=== PATIENT | male | born 1950 | race Two or more races ===

== ENCOUNTER 2016-05-29 06:38 | Inpatient (IN) | payer MEDICARE, OTHER ==
[~2016-05-29] VITALS: Ht 180.3 cm; Wt 79.4 kg
[2016-05-29 04:00] VITALS: BP 141/74
[2016-05-29] MEDS ORDERED: IV NS 0.9% 1,000 ML ONE (07:05)
[2016-05-29] MEDS ORDERED: IV SET PRIMARY PUMP SET 1 EA INFUS.SET MC ONE ×2 (07:05→13:31)
[2016-05-29] MEDS ORDERED: ONDANSETRON HCL/PF 4 MG/2 ML VIAL ONE (07:05)
[2016-05-29] MEDS: METOCLOPRAMIDE HCL 10 MG/2 ML VIAL IV ONE ×2 (07:12→08:30)
[2016-05-29 07:24] LABS: BASOPHILS % (AUTO) 0.5 % (0.0-2.0); DIFF TOTAL % 100 %; EOSINOPHILS # (AUTO) 0.1 /CMM (0.0-0.7); EOSINOPHILS % (AUTO) 1.5 % (0.0-6.0); HEMATOCRIT 46 % (39-51); HEMOGLOBIN 15.6 g/dL (13.5-17.5); LYMPHOCYTES # (AUTO) 1.7 /CMM (0.8-4.8); LYMPHOCYTES % (AUTO) 18.3 % (20.0-44.0); MEAN CORPUSCULAR HEMOGLOBIN 31 PG (26.0-33.0); MEAN CORPUSCULAR HGB CONC 34 g/dl (31.0-36.0); MEAN CORPUSCULAR VOLUME 90 fL (80-96); MONOCYTES # (AUTO) 0.9 /CMM (0.1-1.30); MONOCYTES % (AUTO) 9.6 % (2.0-12.0); NEUTROPHILS # (AUTO) 6.3 /CMM (1.8-8.9); NEUTROPHILS % (AUTO) 70.1 % (43.0-81.0); PLATELET COUNT (AUTO) 275 /CMM (150-450)
[2016-05-29 07:29] LABS: ANION GAP 16 (5-14); CALCIUM, SERUM 9.6 mg/dL (8.5-10.1); CARBON DIOXIDE 23 mmol/L (21-32); CHLORIDE 102 mmol/L (98-107); CREATININE 1.4 mg/dL (0.6-1.3); GFR 50 mL/min (>60); GLUCOSE 159 mg/dL (74-106); POTASSIUM 3.6 mmol/L (3.5-5.1); SODIUM SERUM 138 mmol/L (136-145); UREA NITROGEN, BLOOD 20 mg/dL (7-18)
[2016-05-29 07:30] LABS: INR 0.96 (0.87-1.13); PROTHROMBIN TIME 10.1 SECS (9.5-12.7)
[2016-05-29] MEDS ORDERED: IV NS 0.9% 1,000 ML BAG IV ONE (07:30)
[2016-05-29] MEDS ORDERED: ONDANSETRON HCL/PF 4 MG/2 ML VIAL IVP ONE (07:30)
[2016-05-29 07:39] LABS: TROPONIN I < 0.017 ng/mL (0.00-0.056)
[2016-05-29] MEDS ORDERED: METOCLOPRAMIDE HCL 10 MG/2 ML VIAL ONE (08:29)
[2016-05-29] MEDS ORDERED: LATA2.5D7 EACHEYE (10:43)
[2016-05-29] MEDS ORDERED: ASPIRIN 325 MG TABLET PO ONE (11:30)
[2016-05-29] MEDS ORDERED: ASPIRIN 325 MG TABLET ONE (11:50)
[2016-05-29] MEDS ORDERED: AMLODIPINE BESYLATE 2.5 MG TABLET PO SCH (12:27)
[2016-05-29 12:30] VITALS: BP 124/81
[2016-05-29] MEDS ORDERED: ACETAMINOPHEN 325 MG TABLET PO PRN (12:30)
[2016-05-29] MEDS ORDERED: ACETAMINOPHEN ES 500 MG TABLET PO PRN (12:30)
[2016-05-29] MEDS ORDERED: ZOLPIDEM TARTRATE 5 MG TABLET PO PRN ×2 (12:30)
[2016-05-29] MEDS ORDERED: ONDANSETRON HCL/PF 4 MG/2 ML VIAL IV PRN (13:00)
[2016-05-29] MEDS ORDERED: PANTOPRAZOLE 40 MG VIAL IV SCH (13:00)
[2016-05-29] MEDS: ENOXAPARIN SODIUM 40 MG/0.4 ML DISP.SYRIN SQ SCH (13:55)
[2016-05-29 14:46] VITALS: BP 124/81
[2016-05-29 16:00] VITALS: BP 150/78
[2016-05-29 20:00] VITALS: BP_SYST 149; BP_SYST 153; BP_DIAS 71; BP_DIAS 77
[2016-05-29 22:00] VITALS: BP 149/71
[2016-05-30] VITALS: BP 150/77
[2016-05-30 06:51] LABS: BASOPHILS % (AUTO) 0.5 % (0.0-2.0); DIFF TOTAL % 100 %; EOSINOPHILS # (AUTO) 0.2 /CMM (0.0-0.7); EOSINOPHILS % (AUTO) 2.1 % (0.0-6.0); HEMATOCRIT 42 % (39-51); HEMOGLOBIN 14.3 g/dL (13.5-17.5); LYMPHOCYTES # (AUTO) 2.1 /CMM (0.8-4.8); LYMPHOCYTES % (AUTO) 28.8 % (20.0-44.0); MEAN CORPUSCULAR HEMOGLOBIN 31 PG (26.0-33.0); MEAN CORPUSCULAR HGB CONC 34 g/dl (31.0-36.0); MEAN CORPUSCULAR VOLUME 91 fL (80-96); MONOCYTES # (AUTO) 0.8 /CMM (0.1-1.30); MONOCYTES % (AUTO) 11.2 % (2.0-12.0); NEUTROPHILS # (AUTO) 4.1 /CMM (1.8-8.9); NEUTROPHILS % (AUTO) 57.4 % (43.0-81.0); PLATELET COUNT (AUTO) 220 /CMM (150-450); RED BLOOD CELL COUNT(AUTO) 4.66 MIL/uL (4.5-6.0); WHITE BLOOD COUNT (AUTO) 7.2 K/uL (4.3-11.0)
[2016-05-30 07:25] LABS: THYROID STIMULATING HORMONE 1.157 uIU/mL (0.358-3.74)
[2016-05-30 07:27] VITALS: BP 146/75
[2016-05-30 07:31] LABS: ALBUMIN 3.1 g/dL (3.4-5.0); BILIRUBIN,TOTAL 0.5 mg/dL (0.2-1.0); CALCIUM, SERUM 8.8 mg/dL (8.5-10.1); CREATININE 1.2 mg/dL (0.6-1.3); TOTAL PROTEIN, SERUM 6.2 g/dL (6.4-8.2)
[2016-05-30 08:00] VITALS: BP 146/75
[2016-05-30] MEDS ORDERED: AMLO2.5T PO (08:34)
[2016-05-30] MEDS ORDERED: AMLO5TAB4 PO (08:36)
[2016-05-30] MEDS ORDERED: AMLODIPINE BESYLATE 2.5 MG TABLET PO SCH (09:00)
[2016-05-30] MEDS: ENOXAPARIN SODIUM 40 MG/0.4 ML DISP.SYRIN SQ SCH (09:16)
[2016-05-30 11:00] VITALS: BP 146/75
[2016-05-30] MEDS ORDERED: LATANOPROST EYE DROP 0.005% 2.5 ML BOTTLE OP SCH (22:00)
== END 2016-05-30 11:00 | disposition home or self-care (01) | DRG 684 ==
LOC: ER 06:43 → TELE 11:22 → MED 05-30 08:34
PROVIDERS: ADMIT Internal Medicine; ATTEND Internal Medicine
DX: N17.0 Acute kidney failure with tubular necrosis (principal); I95.9 Hypotension, unspecified; E86.0 Dehydration; F17.210 Nicotine dependence, cigarettes, uncomplicated; H40.9 Unspecified glaucoma; I10 Essential (primary) hypertension; R55 Syncope and collapse
CPT/HCPCS: 36415; 70450-TC; 80048-TC; 80053-TC; 84443-TC; 84484-TC; 85025-TC; 85730-TC; 87081-TC; 93307-TC; 93880-TC; A4606; C9113; J1650; J2405; J2765; J3480; J3490; J7030; Z7610

== ENCOUNTER 2016-11-18 13:21 | Inpatient (IN) | payer OTHER ==
[~2016-11-18] VITALS: Ht 182.9 cm; Wt 73.9 kg
[~2016-11-18 13:21] MED LIST: AMLO5TAB4 PO; LATA2.5D7 EACHEYE
--- NOTE | 2016-11-18 13:25 | NUR ---
R L Q ABD PAIN, NON RADIATING SINCE YESTERDAY. AMBULATORY . PLACED ON MONITOR. GOWNED PT. AWAITING MD ORDER.
--- NOTE | 2016-11-18 13:36 | NUR ---
DARBY FRAIRE LARRIMAN AT BEDSIDE FOR EVAL
[2016-11-18] MEDS ORDERED: ONDANSETRON HCL/PF 4 MG/2 ML VIAL ONE (13:45)
[2016-11-18] MEDS ORDERED: MORPHINE SULFATE INJ 4 MG/ML DISP.SYRIN ONE (13:45)
[2016-11-18 13:46] LABS: BASOPHILS # (AUTO) 0.2 /CMM (0.0-0.2); BASOPHILS % (AUTO) 1.2 % (0.0-2.0); EOSINOPHILS # (AUTO) 0.1 /CMM (0.0-0.7); EOSINOPHILS % (AUTO) 0.6 % (0.0-6.0); HEMATOCRIT 47 % (39-51); HEMOGLOBIN 15.4 g/dL (13.5-17.5); LYMPHOCYTES # (AUTO) 2.1 /CMM (0.8-4.8); LYMPHOCYTES % (AUTO) 13.3 % (20.0-44.0); MEAN CORPUSCULAR HEMOGLOBIN 30 PG (26.0-33.0); MEAN CORPUSCULAR HGB CONC 33 g/dl (31.0-36.0); MEAN CORPUSCULAR VOLUME 92 fL (80-96); MONOCYTES # (AUTO) 1.5 /CMM (0.1-1.30); MONOCYTES % (AUTO) 9.3 % (2.0-12.0); NEUTROPHILS # (AUTO) 11.9 /CMM (1.8-8.9); NEUTROPHILS % (AUTO) 75.6 % (43.0-81.0); PLATELET COUNT (AUTO) 224 /CMM (150-450); RDW COEFFICIENT OF VARIATION 12.2 (11.5-15.0); RED BLOOD CELL COUNT(AUTO) 5.09 MIL/uL (4.5-6.0); WHITE BLOOD COUNT (AUTO) 15.8 K/uL (4.3-11.0)
[2016-11-18 13:51] LABS: CALCIUM, SERUM 8.8 mg/dL (8.5-10.1); CREATININE 1.2 mg/dL (0.6-1.3); POTASSIUM 3.7 mmol/L (3.5-5.1)
[2016-11-18] MEDS ORDERED: IV NS 0.9% 1,000 ML BAG IV ONE (14:00)
[2016-11-18] MEDS ORDERED: MORPHINE SULFATE INJ 2 MG/ML DISP.SYRIN IV ONE (14:00)
[2016-11-18] MEDS ORDERED: ONDANSETRON HCL/PF 4 MG/2 ML VIAL IVP ONE (14:00)
[2016-11-18] MEDS ORDERED: IOHEXOL-300 100 ML VIAL IV ONE (14:00)
[2016-11-18] MEDS ORDERED: IV NS 0.9% 250 ML IV ONE (14:01)
--- NOTE | 2016-11-18 14:15 | NUR ---
PT TAKEN TO CT VIA WC
--- NOTE | 2016-11-18 14:15 | NUR ---
URINE SAMPLE COLLECTED SENT TO LAB
[2016-11-18 14:19] LABS: APPEARANCE,URINE Clear (CLEAR); BILIRUBIN,URINE Negative (NEGATIVE); BLOOD, URINE Moderate Ery/uL (NEGATIVE); COLOR,URINE Yellow (YELLOW); KETONES,URINE Negative (NEGATIVE); LEUKOCYTE ESTERASE ,URINE Negative (NEGATIVE); NITRITE, URINE Negative (NEGATIVE); PROTEIN,URINE Negative (NEGATIVE); UGLUCOSE Negative (NEGATIVE); UROBILINOGEN,URINE 0.2 EU/dL (0.2)
[2016-11-18 14:27] LABS: BACTERIA,URINE Few /HPF (None Seen); SQUAMOUS EPITHELIAL CELL,UR Rare /HPF (None Seen)
--- NOTE | 2016-11-18 14:40 | NUR ---
CALLED [employer] SUPERVISOR SURGEON, DR. JOHNSON, LEFT MESSAGE ON VOICEMAIL
--- NOTE | 2016-11-18 14:40 | NUR ---
CALLED NURSING SUP. FOR MS BED
--- NOTE | 2016-11-18 14:53 | NUR ---
SPRINKLER FITTER APPRENTICE AT BEDSIDE
[2016-11-18] MEDS ORDERED: PIPERACILLIN /TAZOBACTAM 3.375 G in IV D5W 50 ML IV ONE (15:00)
--- NOTE | 2016-11-18 15:21 | NUR ---
CALLED , TRANSFERRED CALL TO [facility]
--- NOTE | 2016-11-18 15:29 | NUR ---
KATHIE WHALEN [phone]
--- NOTE | 2016-11-18 15:36 | NUR ---
PT SIGNED CONSENTS FOR SURGURY APPENDECTOMY
--- NOTE | 2016-11-18 15:38 | NUR ---
PT TRANSFER TO OR VIA [facility] FOR EMERGENCY SURGERY.
--- NOTE | 2016-11-18 15:43 | NUR ---
GAVE REPORT TO JOANA DURAN MEDSURG AFTER DR DIAZ ADMITTING DR WOOD SURGEON.
[2016-11-18] MEDS ORDERED: ROCURONIUM BROMIDE 50 MG/5 ML ONE (15:55)
[2016-11-18] MEDS ORDERED: LIDOCAINE 1% INJ 50 ML MDV IJ ONE ×2 (16:30→16:31)
[2016-11-18] MEDS ORDERED: BUPIVACAINE MPF 0.5% W/EPI INJ 30 ML VIAL ONE (16:30)
[2016-11-18] MEDS ORDERED: BUPIVACAINE MPF 0.5% W/EPI INJ 30 ML VIAL IJ ONE (16:45)
[2016-11-18] MEDS ORDERED: LIDOCAINE 1%-EPI 1:100,000 50 ML VIAL IJ ONE (16:56)
[2016-11-18] MEDS ORDERED: ANESTHESIA TRAY IN PYXIS 1 EA TRAY MC ONE ×2 (17:37→20:33)
[2016-11-18 18:30] VITALS: BP 109/58
--- NOTE | 2016-11-18 18:45 | NUR ---
RN MS NOTES RECEIVED PT FROM O.R. STAFF VIA BED, PT AWAKE, ALERT AND ORIENTED, NO COMPLAINT OF PAIN, BREATHING PATTERN NORMAL, ROOM SET UP ORIENTATION PROVIDED TO PT, VERBALIZED UNDERSTANDING, POST OP ORDERS FAXED TO PHARMACY, CALL LIGHT PLACED WITHIN REACH.
[2016-11-18] MEDS ORDERED: HYDROMORPHONE 1 MG/1 ML DISP.SYRIN IV PRN (19:00)
[2016-11-18] MEDS ORDERED: ONDANSETRON HCL/PF 4 MG/2 ML VIAL IVP PRN (19:00)
[2016-11-18] MEDS ORDERED: HYDROCODONE/APAP 5/325MG 1 EACH TABLET PO PRN (19:00)
[2016-11-18] MEDS ORDERED: IV LR 1000 ML 1,000 ML IV PRN (19:00)
--- NOTE | 2016-11-18 19:09 | NUR ---
RN MS NOTES RECEIVED ADMITTING ORDERS FROM DR. DIAZ, NOTED AND CARRIED OUT.
[2016-11-18] MEDS ORDERED: ZOLPIDEM TARTRATE 5 MG TABLET PO PRN (19:30)
[2016-11-18] MEDS ORDERED: ACETAMINOPHEN 325 MG TABLET PO PRN (19:30)
[2016-11-18 20:00] VITALS: BP 133/70
[2016-11-18 21:56] LABS: PROTHROMBIN TIME 10.7 SECS (9.5-12.7)
[2016-11-18] MEDS ORDERED: LATANOPROST EYE DROP 0.005% 2.5 ML BOTTLE EACHEYE SCH (22:00)
--- NOTE | 2016-11-19 06:16 | NUR ---
MS RN NOTES AWAKE & RESPONSIVE. NOT IN ANY DISTRESS. NO SOB NOTED. DENIES ANY PAIN OR DISCOMFORT AT THIS TIME. WITH IVF INFUSING WELL. MONITORED ACCORDINGLY. CALL LIGHT WITHIN REACH. BED IN LOWEST POSITION. SR UP X2 FOR SAFETY. WILL ENDORSE TO NEXT SHIFT.
[2016-11-19 07:15] LABS: CALCIUM, SERUM 7.9 mg/dL (8.5-10.1); CREATININE 1.1 mg/dL (0.6-1.3); POTASSIUM 4.4 mmol/L (3.5-5.1)
[2016-11-19 07:25] LABS: BASOPHILS % (AUTO) 0.2 % (0.0-2.0); HEMATOCRIT 43 % (39-51); HEMOGLOBIN 14.6 g/dL (13.5-17.5); LYMPHOCYTES # (AUTO) 1.8 /CMM (0.8-4.8); MEAN CORPUSCULAR HEMOGLOBIN 31 PG (26.0-33.0); MEAN CORPUSCULAR HGB CONC 34 g/dl (31.0-36.0); MEAN CORPUSCULAR VOLUME 92 fL (80-96); MONOCYTES # (AUTO) 0.8 /CMM (0.1-1.30); MONOCYTES % (AUTO) 5.8 % (2.0-12.0); NEUTROPHILS # (AUTO) 10.6 /CMM (1.8-8.9); PLATELET COUNT (AUTO) 186 /CMM (150-450); RDW COEFFICIENT OF VARIATION 13.6 (11.5-15.0); RED BLOOD CELL COUNT(AUTO) 4.66 MIL/uL (4.5-6.0); WHITE BLOOD COUNT (AUTO) 13.2 K/uL (4.3-11.0)
--- NOTE | 2016-11-19 07:43 | NUR ---
RN MS NOTES RECEIVED PATIENT IN BED, AWAKE, VERBALLY RESPONSIVE. NO APPARENT DISTRESS NOTED, DENIES PAIN, DENIES SOB. IV LINE ON LAC PATENT INFUSING LR AT 100ML/HR. ALL NEEDS MET, CALL LIGHT WITHIN REACH.
[2016-11-19 08:00] VITALS: BP 149/79
[2016-11-19] MEDS ORDERED: HYDR-552 PO (11:30)
[2016-11-19] MEDS ORDERED: AMOX-430 PO (11:31)
[2016-11-19 16:00] VITALS: BP 143/71
--- NOTE | 2016-11-19 17:11 | NUR ---
RN MS NOTES SPOKE TO DR WOOD, PER MD HOUSTON TO D/C PATIENT.
--- NOTE | 2016-11-19 17:48 | NUR ---
RN CLOSING NOTES PATIENT LEFT, IN STABLE CONDITION VIA PRIVATE CAR. NO APPARENT DISTRESS NOTED, DENIES PAIN, DENIES SOB.PATIENT TOLERATED DIET WELL NO C/O N/V. ALL DUE MEDS GIVEN ALL NEEDS MET, PER DR ISRAEL HUOSTON TO D/C PATIENT FOLLOW UP WITH HIM ONLY IF PATIENT HAS PROBLEMS. DISCHARGE INSTRUCTIONS REVIEWED WITH PATIENT, HE STATED UNDERSTANDING. PRESCRIPTION GIVEN TO PATIENT,EDUCATION PROVIDED. NOTED WITH 4 LAP SITES ON ABDOMEN, PICTURE TAKEN FOR THE CHART. ALL BELONGINGS ACCOUNTED FOR, BELONGINGS LIST SIGNED.
== END 2016-11-19 17:45 | disposition home or self-care (01) | DRG 342 ==
LOC: ER 13:22 → MED 15:26
PROVIDERS: ADMIT Internal Medicine; ATTEND Internal Medicine
PROC: 0DTJ4ZZ Resection of Appendix, Percutaneous Endoscopic Approach (ICD-10-PCS; principal; 2016-11-18 16:00)
DX: K35.80 Unspecified acute appendicitis (principal); N17.9 Acute kidney failure, unspecified; I10 Essential (primary) hypertension; F17.210 Nicotine dependence, cigarettes, uncomplicated; I25.10 Atherosclerotic heart disease of native coronary artery without angina pectoris; K21.9 Gastro-esophageal reflux disease without esophagitis; Z87.11 Personal history of peptic ulcer disease; K66.0 Peritoneal adhesions (postprocedural) (postinfection); I12.9 Hypertensive chronic kidney disease with stage 1 through stage 4 chronic kidney disease, or unspecified chronic kidney disease; N18.9 Chronic kidney disease, unspecified; J44.9 Chronic obstructive pulmonary disease, unspecified; I27.2 Other secondary pulmonary hypertension
CPT/HCPCS: 36415; 71010-TC; 80048-TC; 81000-TC; 85025-TC; 85610-TC; 87081-TC; 88304-TC; 88305-TC; A4606; J1100; J1885; J2270; J2405; J2543; J2704; J2710; J3490; J7030; J7050; J7060; J7120; Q9967; Z7610

== ENCOUNTER 2018-01-09 11:58 | Inpatient (IN) | payer OTHER ==
[~2018-01-09] VITALS: Ht 182.9 cm; Wt 70.8 kg
[~2018-01-09 11:58] MED LIST changes: -AMLO5TAB4 PO; +AMOX-430 PO; +HYDR-552 PO
--- NOTE | 2018-01-09 12:05 | NUR ---
PT TO ED DT CHEST PAIN SINCE YESTERDAY, 07/02, NAD NOTED, VSS, RESP EVEN AND UNLABORED, PT WAS PUT ON MONITOR AND HOSPITAL MD PALAK AT BS.
[2018-01-09 12:24] LABS: BASOPHILS # (AUTO) 0.2 /CMM (0.0-0.2); BASOPHILS % (AUTO) 2.2 % (0.0-2.0); EOSINOPHILS % (AUTO) 2.5 % (0.0-6.0); HEMATOCRIT 49 % (39-51); HEMOGLOBIN 16.8 g/dL (13.5-17.5); LYMPHOCYTES # (AUTO) 2.9 /CMM (0.8-4.8); LYMPHOCYTES % (AUTO) 28.3 % (20.0-44.0); MEAN CORPUSCULAR HEMOGLOBIN 31 PG (26.0-33.0); MEAN CORPUSCULAR HGB CONC 34 g/dl (31.0-36.0); MEAN CORPUSCULAR VOLUME 91 fL (80-96); MONOCYTES # (AUTO) 0.9 /CMM (0.1-1.30); MONOCYTES % (AUTO) 9.1 % (2.0-12.0); NEUTROPHILS # (AUTO) 6.1 /CMM (1.8-8.9); NEUTROPHILS % (AUTO) 57.9 % (43.0-81.0); PLATELET COUNT (AUTO) 267 /CMM (150-450); RDW COEFFICIENT OF VARIATION 12.5 (11.5-15.0); RED BLOOD CELL COUNT(AUTO) 5.41 MIL/uL (4.5-6.0); WHITE BLOOD COUNT (AUTO) 10.4 K/uL (4.3-11.0)
[2018-01-09] MEDS ORDERED: METOPROLOL TARTRATE INJ 5 MG/5 ML AMPUL ONE (12:29)
[2018-01-09] MEDS ORDERED: ASPIRIN 325 MG TABLET ONE (12:29)
[2018-01-09] MEDS ORDERED: ASPIRIN 325 MG TABLET PO ONE (12:30)
[2018-01-09] MEDS ORDERED: METOPROLOL TARTRATE INJ 5 MG/5 ML AMPUL IVP ONE (12:30)
[2018-01-09 12:35] LABS: CALCIUM, SERUM 9.3 mg/dL (8.5-10.1); CARBON DIOXIDE 27 mmol/L (21-32); CHLORIDE 101 mmol/L (98-107); CREATININE 1.1 mg/dL (0.6-1.3); GLUCOSE 109 mg/dL (74-106); POTASSIUM 5.3 mmol/L (3.5-5.1); SODIUM SERUM 132 mmol/L (136-145); UREA NITROGEN, BLOOD 21 mg/dL (7-18)
[2018-01-09 12:40] LABS: ALANINE AMINOTRANSFERASE 19 U/L (12-78); ALBUMIN 3.6 g/dL (3.4-5.0); ALKALINE PHOSPHATASE 50 U/L (46-116); ASPARTATE AMINOTRANSFERASE 24 U/L (15-37); BILIRUBIN,DIRECT 0.1 mg/dL (0.0-0.2); BILIRUBIN,TOTAL 0.8 mg/dL (0.2-1.0); TOTAL PROTEIN, SERUM 7.4 g/dL (6.4-8.2)
[2018-01-09 12:42] LABS: INR 0.95 (0.85-1.15)
[2018-01-09 12:43] LABS: TROPONIN I < 0.017 ng/mL (0.00-0.056)
[2018-01-09] MEDS ORDERED: ZOLPIDEM TARTRATE 5 MG TABLET PO PRN (15:00)
[2018-01-09] MEDS ORDERED: ACETAMINOPHEN ES 500 MG TABLET PO PRN (15:00)
--- NOTE | 2018-01-09 15:30 | NUR ---
tele technician plant and maintenance: admission admitted this 68 yr old male pt from [facility] with dx: chest pain. awake, a/ox4; lao and lebanese speaking. no c/o pain at this time. oriented to room and surroundings. son and at bedside. tele sb=50's. in no apparent distress noted. will continue to monitor.
[2018-01-09 15:45] VITALS: BP 128/66
[2018-01-09 16:00] VITALS: BP 128/66
--- NOTE | 2018-01-09 16:00 | NUR ---
tele discharge coordinator: notes dr. newman here for consult; ask md if pt can eat, stated, "yes, no other test at this time." sandwich provided. 2 d echo in progress. family at bedside. dr. newman came after to talk to pt and possible ta in am as stated. pt and family verbalized understanding. after 2 d echo, pt started to eat. hob elevated. instructed to call for assistance.
--- NOTE | 2018-01-09 16:15 | NUR ---
tele mines inspector: notes informed pt to stop eating, pt for cta chest for dissection r/o MASS PROXIMAL AO. pt aware and verbalized understanding. pt signed the consent. family remains at bedside.
[2018-01-09] MEDS ORDERED: CT SWABBABLE VALVE TRANS SET 1 EA INFUS.SET MC ONE (16:38)
[2018-01-09] MEDS ORDERED: IOHEXOL-350 100 ML VIAL IV ONE (16:38)
[2018-01-09] MEDS ORDERED: IV NS 0.9% 250 ML IV ONE (16:38)
--- NOTE | 2018-01-09 17:00 | NUR ---
tele wireless operator: notes pt back from cta chest at this time. place pt back on tele. instructed to call for assistance. will continue to monitor.
[2018-01-09] MEDS: PANTOPRAZOLE 40 MG TABLET.DR PO SCH (17:09)
[2018-01-09] MEDS: IV 1/2NS 1000 ML 1,000 ML IV PRN (17:10)
--- NOTE | 2018-01-09 19:00 | NUR ---
tele rn field: notes report given to nicholas (rn) for continuity of care. needs attended.
--- NOTE | 2018-01-09 19:30 | NUR ---
TELE/RN OPENING NOTES PT RECEIVED AWAKE, SITTING UP IN BED. FAMILY AT BEDSIDE. A/OX3. ON ROOM AIR, BREATHING EVEN AND UNLABORED. DENIES SOB AND CHEST PAIN AT THIS TIME. IN NO ACUTE DISTRESS. ON TELE MONITOR SHOWING SB 57. IV TO RAC PATENT AND INTACT RUNNING IVF ORDERED. BED IN LOW/LOCKED POSITION WITH CALL LIGHT IN REACH. BILATERAL UPPER SIDE RAILS IN PLACE. WILL CONTINUE TO MONITOR
[2018-01-09 20:00] VITALS: BP_SYST 119; BP_SYST 133; BP_SYST 153; BP_DIAS 59; BP_DIAS 75
[2018-01-10] MEDS: IV 1/2NS 1000 ML 1,000 ML IV PRN (00:12)
[2018-01-10 07:32] LABS: CALCIUM, SERUM 8.8 mg/dL (8.5-10.1); POTASSIUM 4.1 mmol/L (3.5-5.1)
[2018-01-10 07:44] LABS: THYROID STIMULATING HORMONE 3.327 uIU/mL (0.358-3.74)
--- NOTE | 2018-01-10 07:57 | NUR ---
TELE/RN CLOSING NOTES PT RESTING IN BED. A/OX3. ON ROOM AIR, BREATHING EVEN AND UNLABORED. DENIES SOB AND CHEST PAIN AT THIS TIME. IN NO ACUTE DISTRESS. TELE MONITOR SHOWING SB 51. IV TO RAC PATENT AND INTACT, IVF CURRENTLY ON HOLD. NO SIGNIFICANT CHANGES OVERNIGHT. BED IN LOW/LOCKED POSITION WITH CALL LIGHT IN REACH. BILATERAL UPPER SIDE RAILS IN PLACE. ENDORSED TO DAY SHIFT RN YOLIS.
[2018-01-10 08:00] VITALS: BP 146/87
[2018-01-10] MEDS: PANTOPRAZOLE 40 MG TABLET.DR PO SCH (08:27)
--- NOTE | 2018-01-10 14:08 | NUR ---
RN NOTE 1245: ANDREW prep done, connected to monitor, SB 40-50's. SBP 150's. A/Ox4. RAC PIV intact, connected to TKO. 1310: Done with ANDREW, patient VSS. Tolerated procedure. 1330: Transferred patient back to room 323-1, VSS, back to baseline. Patient is A/Ox4, tolerated room air. Accompanied by . Transferred via wheelchair. No any significant changes noted.
[2018-01-10] MEDS: ATORVASTATIN 40 MG TABLET PO SCH ×2 (14:32→22:35)
[2018-01-10 16:00] VITALS: BP 128/73
--- NOTE | 2018-01-10 18:42 | NUR ---
patient aaox4 all follow commands room air no sob non labored breathing tele;sr denied chest pain any pain pt changed m/s downgrade abdomen soft non tender diet tolerated skin is dry intact no edema noted pt able to ambulation without assistance pt ANDREW done at icu unit result; negative will continue monitor
[2018-01-10 20:00] VITALS: BP 120/97
[2018-01-10 20:35] VITALS: BP 120/97
[2018-01-11 08:00] VITALS: BP_SYST 141; BP_SYST 147; BP_DIAS 79
[2018-01-11] MEDS: PANTOPRAZOLE 40 MG TABLET.DR PO SCH (08:20)
--- NOTE | 2018-01-11 15:40 | NUR ---
PATIENT AAOX4 ALL FOLLOW COMMANDS ROOM AIR NO SOB NON LABORED BREATHING ABDOMEN SOFT NON TENDER DIET TOLERATED PT DENIED CHEST PAIN ANY PAIN SKIN IS DRY INTACT NO EDEMA NOTED PT ABLE TO AMBULATION WITHOUT ASSISTANCE CT ANGIO CONSENT OBTAINED FROM PATIENT WILL CONTINUE MONITOR
[2018-01-11 16:00] VITALS: BP 136/84
--- NOTE | 2018-01-11 19:20 | NUR ---
MS RN OPENING NOTES PATIENT A/AOX4 , ON ROOM AIR WITH NO SOB AND CHEST PAIN AT THIS TIME.PT AMBULATORY. NPO STATUS AFTER MIDNIGHT.SAFETY PRECAUTIONS IN PLACE. WILL CONTINUE TO MONITOR .
[2018-01-11 20:00] VITALS: BP 153/87
[2018-01-11] MEDS: ATORVASTATIN 40 MG TABLET PO SCH (22:26)
--- NOTE | 2018-01-12 06:58 | NUR ---
MS N CLOSING NOTES PATIENT AWAKE A/O X4 , ON ROOM AIR WITH NO SOB AND CHEST PAIN AT THIS TIME.PT AMBULATORY. NPO STATUS FOR CT ANGIO HEART.SAFETY PRECAUTIONS IN PLACE.CALL LIGHT WITHIN REACH.WILL ENDORSE TO NEXT SHIFT FOR YOLIS .
--- NOTE | 2018-01-12 07:05 | NUR ---
MSRN OPENING NOTES. PT RECEIVED A&0X3, TOLERATING ROOM AIR AND DENIES RESP DISTRESS. PT REFUSING IVF AT THIS TIME. IVC INTACT AND SALINE FLUSH PATENT. PT WITH FAMILY AT BEDSIDE. PT NPO R/T CTA TODAY. PT BED IN LOWEST LOCKED POSITION WITH HANDRAILSX2 AND CALL [place] WITHIN REACH. PT BRIEFED ON TODAY'S POC AND IS WITHOUT CONCERN OR COMPLAINT AT THIS TIME.
--- NOTE | 2018-01-12 07:30 | NUR ---
MSRN. NIGHT NURSE ENTERED STAT CTA AT MED REQUEST ORDER PREVIOUSLY NOT PLACED. CHARGE MADE AWARE AND WILL CONTINUE TO CALL RADIOLOGY TO ENSURE PROCEDURE CAN BE COMPLETED.
[2018-01-12 08:09] VITALS: BP 151/77
[2018-01-12 08:17] VITALS: BP 151/77
[2018-01-12] MEDS: PANTOPRAZOLE 40 MG TABLET.DR PO SCH (09:00)
[2018-01-12] MEDS ORDERED: CT SWABBABLE VALVE TRANS SET 1 EA INFUS.SET MC ONE (09:51)
[2018-01-12] MEDS ORDERED: IOHEXOL-350 100 ML VIAL IV ONE (09:51)
[2018-01-12 09:55] VITALS: BP 145/80
[2018-01-12 10:05] VITALS: BP 155/82
--- NOTE | 2018-01-12 10:06 | NUR ---
CHIEF GROWTH OFFICER RECEIVED PT FROM ROOM AOX4 NO DISTRESS NOTED NKA BUN 19 CREAT 1.1 BMI 21.2 PREPARED PT FOR PROCEDURE MOVED TO CT CTA COMPLETE AT 1010 NO DISTRESS NOTED VS STABLE ALL PT NEEDS MEET MOVED BACK TO ROOM, DC INSTRUCTIONS GIVEN AND TAUGHT HAVE GOOD UNDERSTANDING, OF INSTRUCTIONS, PT MOVED TO ROOM ROOM UNDER STABLE CONDITION AOX4
--- NOTE | 2018-01-12 11:30 | NUR ---
MSRN D/C NOTES. PT PREPARED FOR D/C PER MD. PT TOLERATING ROOM AIR WITHOUT DISTRESS AND DENIES CHEST PAIN OR PAIN/DISCOMFORT IN GENERAL. IVC REMOVED AND NAD AT SITE. PT CHOOSING NOT TO WAIT FOR CD OF RESULTS OR CTA REPORT MD AWARE. PT BRIEFED ON S/S OF STROKE, DVT AND PE, PT AND FAMILY VERBALIZING UNDERSTANDING OF S/S AND TO CALL 911 IMMEDIATELY WITH ANY CONCERN. PT REFUSING SCHEDULED FOLLOW UPS AND PROVIDED WITH EMILY WILLARD AND SURGEONS CONTACT DETAILS, PT AND FAMILY STATING THEY JUST WANT TO GO HOME AND WILL GET SECOND OPINIONS WHEN THEY ARE READY. PT WILL RETURN IN AM FOR CD'S OF IMAGES ETC. PT WITH ALL BELONGINGS AND DOCUMENT SIGNED. PT AND FAMILY BRIEFED ON [facility] D/C PACKET AND ARE VERBALIZING UNDERSTANDING, INTENT AND RESOURCES TO COMPLY WITH POC. PT REFUSED WHEELCHAIR AND LEFT WITH FAMILY WITHOUT CONCERN OR COMPLAINT. SON'S CONTACT TO BE ENTERED IN FOLLOWING NOTE.
--- NOTE | 2018-01-12 12:23 | NUR ---
PT [facility] - TA [phone].
== END 2018-01-12 11:30 | disposition home or self-care (01) | DRG 303 ==
LOC: ER 12:01 → TELE 15:07 → MED 01-10 09:20 → ICU 01-10 10:06 → MED 01-10 13:55
PROVIDERS: ADMIT Internal Medicine; ATTEND Internal Medicine
PROC: B24BZZ4 Ultrasonography of Heart with Aorta, Transesophageal (ICD-10-PCS; principal; 2018-01-10)
DX: I25.10 Atherosclerotic heart disease of native coronary artery without angina pectoris (principal); I48.0 Paroxysmal atrial fibrillation; E87.5 Hyperkalemia; E78.00 Pure hypercholesterolemia, unspecified; E78.5 Hyperlipidemia, unspecified; F17.210 Nicotine dependence, cigarettes, uncomplicated; I10 Essential (primary) hypertension; I70.0 Atherosclerosis of aorta; Z86.73 Personal history of transient ischemic attack (TIA), and cerebral infarction without residual deficits; Z90.49 Acquired absence of other specified parts of digestive tract
CPT/HCPCS: 36415; 71045-TC; 75574; 80048-TC; 80061-TC; 80076-TC; 84443-TC; 84484-TC; 85025-TC; 85730-TC; 87081-TC; 93307-TC; 93312-TC; A4606; J2704; J3490; J7030; J7050; Q9967; Z7610

== ENCOUNTER 2021-10-21 12:28 | Inpatient (IN) | payer MEDICARE, OTHER ==
[~2021-10-21] VITALS: Ht 167.6 cm; Wt 73.5 kg
[~2021-10-21 12:28] MED LIST changes: -AMOX-430 PO; -HYDR-552 PO; +LATA2.5D15 EACHEYE; -LATA2.5D7 EACHEYE
--- NOTE | 2021-10-21 12:58 | NUR ---
seen and examined by Dr Cooper
[2021-10-21 13:27] LABS: BASOPHILS # (AUTO) 0.1 K/uL (0.0-0.2); EOSINOPHILS % (AUTO) 2.3 % (0.0-6.0); HEMATOCRIT 50 % (39-51); HEMOGLOBIN 16.7 g/dL (13.5-17.5); LYMPHOCYTES # (AUTO) 2.6 K/uL (0.8-4.8); LYMPHOCYTES % (AUTO) 28.1 % (20.0-44.0); MEAN CORPUSCULAR HGB CONC 34 g/dl (31.0-36.0); MEAN CORPUSCULAR VOLUME 94 fL (80-96); MONOCYTES # (AUTO) 0.9 K/uL (0.1-1.30); MONOCYTES % (AUTO) 9.7 % (2.0-12.0); NEUTROPHILS # (AUTO) 5.4 K/uL (1.8-8.9); NEUTROPHILS % (AUTO) 58.9 % (43.0-81.0); PLATELET COUNT (AUTO) 230 K/uL (150-450); RED BLOOD CELL COUNT(AUTO) 5.31 MIL/uL (4.5-6.0); WHITE BLOOD COUNT (AUTO) 9.3 K/uL (4.3-11.0)
[2021-10-21 13:49] LABS: CARBON DIOXIDE 25 mmol/L (21-32); CHLORIDE 103 mmol/L (98-107); CREATININE 1.1 mg/dL (0.6-1.3); GLUCOSE 98 mg/dL (74-106); POTASSIUM 5.7 mmol/L (3.5-5.1); SODIUM SERUM 137 mmol/L (136-145); UREA NITROGEN, BLOOD 22 mg/dL (7-18)
--- NOTE | 2021-10-21 13:59 | NUR ---
Pt VS = B/P = 126/66, HR = 52, RR = 20, no c/o pain at this time, will continue to monitor, Gauge 20 Left AC, flusing patent, intact Iv.
--- NOTE | 2021-10-21 19:45 | NUR ---
ROOM 328-2 TELE
--- NOTE | 2021-10-21 19:49 | NUR ---
RECEIVED PATIENT AWAKE, ALERT X4. NO CP COMPLAINT AT THE MOMENT.
[2021-10-21 20:45] VITALS: BP 127/79
--- NOTE | 2021-10-21 20:45 | NUR ---
RECEIVING NOTES: PATIENT FROM THE ER VIA [facility] NOT SURE OF HIS HOME MEDS GAVE HIM A PEN AND PAPER AND ASKED HIM TO CALL [facility] AND WRITE THE MEDICATIONS DONE AND THE DOSAGE [place] SPEAKING WITH ENOUGH IRISH TO COMMUNICATE WELL. UPPER DENTURE CELL PHONE WITH POSTING CLERK EYE GLASSES. HE DIDN'T WANT TO RENETTA HIS BELT AND PANTS OFF NO C/ CHESTPAIN NOTED LFT C/W PACEMAKER STATED PLACD 2 YEARS AGO
[2021-10-21 20:50] VITALS: BP 127/79
--- NOTE | 2021-10-21 20:55 | NUR ---
PT TO UNIT ON GURNEY WITH EMT AND RN AT BEDSIDE WITH ACLS PROTOCOL. NAD NOTED DURINF TRANSPORT.
[2021-10-21] MEDS ORDERED: HYDROCODONE/APAP 5/325MG TABLET PO PRN (23:30)
[2021-10-21] MEDS ORDERED: Z GUARD REMEDY 4 OZ OINT TP PRN (23:30)
[2021-10-21] MEDS ORDERED: ACETAMINOPHEN 325 MG TABLET PO PRN (23:30)
[2021-10-21] MEDS ORDERED: ZOLPIDEM TARTRATE 5 MG TABLET PO PRN (23:30)
[2021-10-21] MEDS ORDERED: ENOXAPARIN SODIUM 30 MG/0.3 ML DISP.SYRIN SQ SCH (23:30)
[2021-10-21] MEDS ORDERED: MORPHINE SULFATE INJ 2 MG/ML DISP.SYRIN IV PRN (23:30)
[2021-10-21] MEDS ORDERED: NITROGLYCERIN 0.4 MG/TAB BOTTLE SL PRN (23:30)
[2021-10-21] MEDS ORDERED: MAGNESIUM HYDROXIDE 30 ML UDC PO PRN (23:30)
[2021-10-21] MEDS ORDERED: MAG HYDROX/AL HYDROX/SIMETH 30 ML UDC PO PRN (23:30)
[2021-10-21] MEDS ORDERED: ONDANSETRON HCL/PF 4 MG/2 ML VIAL IVP PRN (23:30)
[2021-10-21] MEDS ORDERED: TEMAZEPAM 15 MG CAPSULE PO PRN (23:30)
[2021-10-22] VITALS: BP 129/67
[2021-10-22 04:00] VITALS: BP 114/60
--- NOTE | 2021-10-22 04:33 | NUR ---
CLOSING NOTES RN : ALERT AND ORIENTATED X4 UPPER DENTURE IN PLACE ADMITTED LAST NIGHT FOR CHESTPAIN TELE MONITOR SHOWING SB 52 -56 TO NSR 65 -67 THRU THE NIGHT HE STATED HE HAS HAD NO PAIN NO SOB SINCE COMING INTO THE HOSPITAL BUT HE HAD CHESTPAIN AT HOME PACEMAKER RIGHT C/W PLACED 2 YEARS AGO SLEPT SOUNDLY MD WILLARD TO SEE IN THE AM CONSULT
[2021-10-22 06:51] LABS: BASOPHILS % (AUTO) 0.5 % (0.0-2.0); CALCIUM, SERUM 8.8 mg/dL (8.5-10.1); CREATININE 1.1 mg/dL (0.6-1.3); EOSINOPHILS % (AUTO) 4.4 % (0.0-6.0); HEMATOCRIT 44 % (39-51); HEMOGLOBIN 14.9 g/dL (13.5-17.5); LYMPHOCYTES # (AUTO) 2.3 K/uL (0.8-4.8); LYMPHOCYTES % (AUTO) 35.2 % (20.0-44.0); MAGNESIUM 2.2 mg/dL (1.8-2.4); MEAN CORPUSCULAR HGB CONC 34 g/dl (31.0-36.0); MEAN CORPUSCULAR VOLUME 94 fL (80-96); MONOCYTES # (AUTO) 0.6 K/uL (0.1-1.30); MONOCYTES % (AUTO) 8.6 % (2.0-12.0); NEUTROPHILS # (AUTO) 3.4 K/uL (1.8-8.9); NEUTROPHILS % (AUTO) 51.3 % (43.0-81.0); PHOSPHORUS 3.9 mg/dL (2.5-4.9); PLATELET COUNT (AUTO) 174 K/uL (150-450); POTASSIUM 3.6 mmol/L (3.5-5.1); RED BLOOD CELL COUNT(AUTO) 4.72 MIL/uL (4.5-6.0); WHITE BLOOD COUNT (AUTO) 6.6 K/uL (4.3-11.0)
[2021-10-22] MEDS ORDERED: PANTOPRAZOLE 40 MG TABLET.DR PO SCH (07:30)
--- NOTE | 2021-10-22 07:48 | NUR ---
RN am note Patient is in bed , alert , oriented times 4, was admitted last night due to chest pain , on morning assessment patient denies any pain or discomfort. Patient is ambulatory, continent. Patient has RA 20 g saline lock , IV access was flushed with 10 cc of the NS, flushed freely , skin is intact no sighs of infiltration. Patient is on room air , breething unlabored no sighs of distress. Will continue to monitor
[2021-10-22 08:00] VITALS: BP 151/60
[2021-10-22] MEDS ORDERED: ASPIRIN 81 MG TAB.CHEW PO SCH (09:00)
[2021-10-22] MEDS ORDERED: ATORVASTATIN 10 MG TABLET PO SCH (09:00)
--- NOTE | 2021-10-22 12:05 | NUR ---
RN note Patient is at stable helaht condition . Ready for discharge . MD order recived to discharge patient from [facility] with primary MD supervision. SN removed the peripheral line . Discharge instructo Addendum: 10/22/21 at 1207 by ALMA NORWOOD RN discharge instructions provided to the patient in written and verbal . Patient verbalized understanding.
[2021-10-22] MEDS ORDERED: LATANOPROST EYE DROP 0.005% 2.5 ML BOTTLE EACHEYE SCH (22:00)
== END 2021-10-22 11:30 | disposition home or self-care (01) | DRG 303 ==
LOC: ER 13:11 → TELE 20:35
PROVIDERS: ADMIT Nurse Practitioner Acute Care; ATTEND Family Medicine
DX: I25.110 Atherosclerotic heart disease of native coronary artery with unstable angina pectoris (principal); E87.5 Hyperkalemia; Z20.822 Contact with and (suspected) exposure to COVID-19; I10 Essential (primary) hypertension; F17.210 Nicotine dependence, cigarettes, uncomplicated; E78.00 Pure hypercholesterolemia, unspecified; I70.0 Atherosclerosis of aorta; R79.89 Other specified abnormal findings of blood chemistry; Z86.73 Personal history of transient ischemic attack (TIA), and cerebral infarction without residual deficits; Z91.14 Patient's other noncompliance with medication regimen; Z90.49 Acquired absence of other specified parts of digestive tract; Z86.79 Personal history of other diseases of the circulatory system; I51.9 Heart disease, unspecified
CPT/HCPCS: 36415; 71045-TC; 80048-TC; 80061-TC; 83735-TC; 84100-TC; 84484-TC; 85025-TC; 87081-TC; 93307-TC; C9803; G0378; J1650